=== PATIENT | female | born 1950 | race Caucasian/White ===

== ENCOUNTER 2018-06-15 11:12 | Emergency (ER) | payer MEDICARE, MEDICAID, SELFPAY ==
[2018-06-15 11:13] VITALS: BP 147/103; PULSE 100; RESP 18; TEMP 36.6; O2SAT 100; BMI 19.5
--- NOTE | 2018-06-15 11:34 | RAD_ITS ---
STUDY: X-RAY - RIGHT HAND REASON FOR EXAM: Female, 68 years old. Increasing pain. No known injury. TECHNIQUE: 3 view(s) of the hand. COMPARISON: None. FINDINGS: Normal radiocarpal articulation. Normal distal radioulnar joint. Normal visualized carpal bones. Normal carpal articulations There is degenerative arthrosis of the carpometacarpal (CMC) articulation of the thumb. Normal second through fifth carpometacarpal joints. Normal metacarpi. There is degenerative arthrosis of the metacarpophalangeal (MCP) joints. Normal interphalangeal joint of the thumb. Normal proximal and distal phalanges of the thumb. There is degenerative arthrosis of the metacarpophalangeal (MCP) joints. There is diffuse articular joint space narrowing of the proximal and distal interphalangeal joints of the second through fifth fingers, but without erosive changes or periarticular soft tissue swelling. Normal phalanges of the second through fifth fingers. Soft tissue swelling. Calcification of the triangular fibrocartilage. 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 Electronically Signed: Riley Lebron, at 12:51 EST , Service support ,
--- NOTE | 2018-06-15 12:12 | ED.VISSUMM ---
- ER Visit Summary Date of Service: 06/15/18 Chief Complaint: Right wrist pain History of Present Illness: The patient is a 68 F who states that yesterday she woke with pain in the right base of her thumb. It gradually got worse. She denies any history of gout. She does note she has rheumatoid arthritis but not take anything for it. She denies any breaks in the skin or erythema. No fevers. No rashes. She is right-handed. Physical Examination: Afebrile vital signs are stable Patient has tenderness to palpation over the right first carpometacarpal joint. She has chronic changes associated with rheumatoid arthritis of the hands. Negative Lionel test. She is neurovascular intact distal. There is no breaks in the skin's or erythema. Is no lymphangitis. Test Results: X-rays of the hand reveal significant right CMC arthritis. Emergency Department Course and Treatment: Patient was placed in a thumb spica splint. Short course of anti-inflammatories and instructions for ibuprofen. She is to follow-up with primary care. Impression: 1. Right first carpal metacarpal arthritis This note was generated with [employer] dictation software. It may contain incorrect words, spelling, and punctuation that were not noted in review of the chart prior to signing ED Disposition - Plan for ED Patient: Disposition: Home or Assisted Living Instructions: ED Arthritis Rheumatoid Prescriptions: Prednisone [Deltasone] 40 mg PO DAILY #10 tab Referrals: Guilherme Cortez MD [Primary Care Provider] - 1 Week
--- NOTE | 2018-06-15 12:41 | ED.RN ---
DISCHARGE INSTRUCTIONS GIVEN TO AND REVIEWED WITH PATIENT, PATIENT DENIES QUESTIONS OR CONCERNS AND VOICES UNDERSTANDING OF DISCHARGE INSTRUCTIONS. PT AMBULATES OUT OF ROOM WITHOUT DIFFICULTY.
== END 2018-06-15 12:41 | disposition home or self-care (01) ==
PROVIDERS: Emergency Provider Emergency Medicine; Family Provider Family Medicine; PCP Family Medicine
DX: M19.031 Primary osteoarthritis, right wrist (principal)
CPT/HCPCS: 73130; 99283

== ENCOUNTER 2018-09-16 01:22 | Emergency (ER) | payer MEDICARE, MEDICAID, SELFPAY ==
[2018-09-16 01:23] VITALS: BP 176/131; PULSE 94; RESP 22; TEMP 36.6; O2SAT 97; BMI 18.9
[2018-09-16 01:29] VITALS: BP 151/85
--- NOTE | 2018-09-16 01:33 | CT_ITS ---
HISTORY: S/P FALL GOING UP THE STAIRS, C/O LEFT SHOULDER PAIN AND NECK PAIN, HX COPD, EMPHYSEMA EXAMINATION: CT Head or Brain W/O Contrast TECHNIQUE: Multiple axial images were obtained of the brain without intravenous contrast. A radiation dose optimization technique was used for this scan. IV Contrast dosage and agent: None. COMPARISON: None FINDINGS: Age-appropriate cerebral cortical atrophy. Normal ventricles. Crocker-white matter differentiation appears normal. No intracranial mass, hemorrhage, or acute intracranial abnormality. Posterior fossa structures are unremarkable. No suspicious extra-axial fluid collection. The calvarium appears intact. As visualized, the mastoids are clear. Hypoplastic right maxillary sinus. Left parietal large scalp and subgaleal hematoma. No associated fracture. CT/Brain/Head without Contrast IMPRESSION: 1. Normal CT brain for age. 2. Left parietal large scalp and subgaleal hematoma. No calvarial fracture seen. Individualized dose optimization techniques were used for this CT. at 0234 Reported and signed by: Graeme Abdalla MD Electronically Signed: Graeme Abdalla, at 2:33 EDT Tel , Service support ,
--- NOTE | 2018-09-16 01:33 | RAD_ITS ---
HISTORY: Trauma PT FELL GOING UP STEPS PAIN LT MID CLAVICLE TO SHOULDER EXAMINATION/TECHNIQUE: XR left shoulder 4 views COMPARISON: None FINDINGS: Generalized bony demineralization consistent with the patient's age. No fracture seen. High position of the left humeral head beneath the acromion on as seen with rotator cuff arthropathy. Degenerative arthritis with narrowing of the left AC joint. RAD/Shoulder min 2 Views IMPRESSION: 1. No fracture or acute osseous abnormality. 2. Left shoulder degenerative change with rotator cuff arthropathy. at 0247 Reported and signed by: Graeme Abdalla MD Electronically Signed: Graeme Abdalla, at 2:45 EDT Tel , Service support ,
--- NOTE | 2018-09-16 01:33 | CT_ITS ---
HISTORY: S/P FALL GOING UP THE STAIRS, C/O LEFT SHOULDER PAIN AND NECK PAIN, HX COPD, EMPHYSEMA EXAMINATION: CT Spine Cervical W/O Contrast TECHNIQUE: Helically acquired images were obtained of the cervical spine. 2D reformatted images were reviewed. A radiation dose optimization technique was used for this scan. IV Contrast dosage and agent: None. COMPARISON: Cervical spine x-ray 02/09/2017 FINDINGS: No fracture or acute osseous abnormality. Developmental ossicle superior to the dens. Intact dens and craniocervical junction. Multilevel degenerative changes. C1-C2 osteoarthritis. C5-6 and C6-7 disc space narrowing accompanied by endplate spurring both anteriorly and posteriorly. Multilevel facet joint arthritis and uncovertebral spurring. CT/Spine Cervical without Contras IMPRESSION: 1. Negative for fracture or acute osseous abnormality. 2. Multilevel degenerative changes. Individualized dose optimization techniques were used for this CT. at 0240 Reported and signed by: Graeme Abdalla MD Electronically Signed: Graeme Abdalla, at 2:39 EDT Tel , Service support ,
--- NOTE | 2018-09-16 01:37 | CT_ITS ---
HISTORY: S/P FALL GOING UP THE STAIRS, C/O LEFT SHOULDER PAIN AND NECK PAIN, HX COPD, EMPHYSEMA EXAMINATION: CT Chest W/O Contrast TECHNIQUE: Helically acquired images were obtained of the chest. A radiation dose optimization technique was used for this scan. IV Contrast dosage and agent: None. COMPARISON: None FINDINGS: Right apical pleural parenchymal scarring and additional left apical minor scarring. Chronic lung disease with centrilobular emphysema. No acute infiltrate or pulmonary contusion. No pneumothorax. No pleural effusion. Bones: Displaced fracture of the sternal manubrium accompanied by soft tissue hematoma. Adjacent mildly displaced fractures of the anterior left first and second ribs. Thoracic aorta is atherosclerotic and normal in caliber. Coronary artery calcifications. No pericardial effusion. No lymphadenopathy seen. CT/Chest without Contrast IMPRESSION: 1. Displaced fracture of the sternal manubrium accompanied by soft tissue hematoma. Mildly displaced fractures of the anterior left first and second ribs. 2. No pneumothorax or pulmonary contusion. 3. Chronic lung disease with emphysema and biapical scarring, worse on the right. 4. Atherosclerotic calcifications including coronary artery calcifications. Individualized dose optimization techniques were used for this CT. at 0258 Reported and signed by: Graeme Abdalla MD Electronically Signed: Graeme Abdalla, at 2:57 EDT Tel , Service support ,
--- NOTE | 2018-09-16 01:38 | ED.VISSUMM ---
- ER Visit Summary Date of Service: 09/16/18 Chief Complaint: Fall History of Present Illness: The patient is a 68 F presenting after fall. Patient states she was carrying her cat upstairs and lost her balance. She fell forward and then fell down several steps. She did hit her head. She believes she lost consciousness. She complains of left upper rib and left shoulder pain. She is not on anticoagulants. She was able to ambulate after the fall. Denies other complaints. Physical Examination: Vitals are stable. Patient is afebrile. Alert no acute distress. HEENT exam is unremarkable. Neck is mild diffuse tenderness with no step-off Lungs are clear and equal bilaterally. Left anterior rib tenderness with no crepitus Heart is regular rate and rhythm. Abdomen is soft nontender nondistended. No guarding or rebound Extremities mild diffuse tenderness left shoulder with active full range of motion Skin is warm and dry. No focal neurologic deficit. Remainder of exam is unremarkable. Emergency Department Course and Treatment: Patient was given morphine, Zofran IV. CT head shows normal CT brain for age. Left parietal large scalp and subgaleal hematoma. No calvarial fracture seen. CT cervical spine shows negative for fracture or acute osseous abnormality. Multilevel degenerative changes. CT chest shows displaced fracture of the sternal manubrium accompanied by soft tissue hematoma. Mildly displaced fractures of the anterior left first and second ribs. No pneumothorax or pulmonary contusion. Chronic lung disease with emphysema and biapical scarring, worse on the right. Atherosclerotic calcifications including coronary artery calcifications. Left shoulder x-ray shows no fracture or acute osseous abnormality. Left shoulder degenerative change with rotator cuff arthropathy. Due to patient's sternal fracture and first and second rib fracture, she will be transferred to a trauma center. Discussed with [facility]. She will be transferred to [facility] for further evaluation. Disposition: Transfer [facility] Impression: Sternal fracture, left first and second rib fracture, status post mechanical fall This note was generated with [employer] dictation software. It may contain incorrect words, spelling, and punctuation that were not noted in review of the chart prior to signing ED Disposition - Plan for ED Patient: Referrals: Guilherme Cortez MD [Primary Care Provider] -
[2018-09-16] MEDS: Ondansetron 4 MG/2 ML Vial IV (01:47)
--- NOTE | 2018-09-16 01:47 | ED.RN ---
PT NOTES A BUMP ON HER HEAD. DR ROSS NOTIFIED. HOLD MORPHINE AT THIS TIME
[2018-09-16] MEDS: Morphine 2 MG/ML Syringe IV (03:43)
[2018-09-16 04:33] VITALS: BP 156/81; PULSE 89; RESP 19; O2SAT 97
== END 2018-09-16 04:35 | disposition short-term general hospital (02) ==
LOC: ED 01:52
PROVIDERS: Emergency Provider Emergency Medicine; Family Provider Family Medicine; PCP Family Medicine
DX: S22.21XA Fracture of manubrium, initial encounter for closed fracture (principal); S22.42XA Multiple fractures of ribs, left side, initial encounter for closed fracture; S00.03XA Contusion of scalp, initial encounter; W10.9XXA Fall (on) (from) unspecified stairs and steps, initial encounter; Y93.9 Activity, unspecified; Y92.9 Unspecified place or not applicable; J43.9 Emphysema, unspecified; M19.012 Primary osteoarthritis, left shoulder; I25.10 Atherosclerotic heart disease of native coronary artery without angina pectoris; Z72.0 Tobacco use
CPT/HCPCS: 70450; 71250; 72125; 73030; 96374; 96375; 99284; A4216; J2405

== ENCOUNTER 2021-04-22 14:13 | Emergency (ER) | payer MEDICARE, MEDICAID, SELFPAY ==
[2021-04-22 14:14] VITALS: BP 134/83; PULSE 107; RESP 20; TEMP 36.6; O2SAT 97; BMI 18.8
--- NOTE | 2021-04-22 14:20 | RAD_ITS ---
STUDY: X-RAY - LEFT KNEE REASON FOR EXAM: Female, 71 years old. Pain and swelling. No history of injury. TECHNIQUE: 4 view(s) of the knee. COMPARISON: None. FINDINGS: Normal visualized distal femur. Normal visualized proximal tibia and fibula. Normal proximal tibiofibular articulation. There is severe degenerative arthrosis of the medial femorotibial compartment with severe joint space narrowing. Normal lateral femorotibial compartment. There is moderate degenerative arthrosis of the patellofemoral articulation. Moderate sized joint effusion. Chondrocalcinosis. RAD/Knee 4 or More Views IMPRESSION: Degenerative arthrosis. Moderate size joint effusion. Electronically Signed: Riley Lebron MD at 14:36 EST , Service support ,
--- NOTE | 2021-04-22 17:34 | EX.ED.DYSGE1 ---
HPI History of Present Illness Chief Complaint: Lower Extremity Injury Informant: patient Narrative Narrative: 71-year-old female states that last night she began to have left knee swelling and pain. She states that she is having a great deal of time walking on it. She has a known Rainey's cyst but does not have an orthopedist that she follows with. She also notes pain in the left ankle and hip. She denies any fevers or chills. No known trauma. She states she does not have a history of gout. PFSH PFSH Medical History COPD (chronic obstructive pulmonary disease) Smoker Home Medications NK 04/22/21 [History Last Taken Unknown] ketorolac 10 mg PO Q8H PRN 5 Days #15 tab 04/22/21 [Rx Last Taken Unknown] Allergy/AdvReac Type Severity Reaction Status Date / Time latex Allergy Rash Verified 04/22/21 14:16 levofloxacin [From Levaquin] Allergy Rash Verified 04/22/21 14:16 hydrocodone bitartrate AdvReac MADE ME Verified 04/22/21 14:16 [From Vicodin] FEEL WEIRD Surgical History History of appendectomy History of hysterectomy Social History (Updated 04/22/21 @ 17:[address] Davy Ross DO) Smoking Status: Light Smoker (<10/day) substance use type: does not use ROS ROS ED Constitutional Constitutional ED: Denies chills, fever(s) or weight loss Eyes Eyes: Denies change in vision or diplopia ENT ENT ED: Denies ear pain, rhinorrhea or sore throat Cardiovascular Cardiovascular: Denies chest pain, orthopnea, palpitations or racing heartbeat Respiratory/Chest Respiratory/Chest: Denies cough, dyspnea or orthopnea Gastrointestinal Gastrointestinal: Denies abdominal pain, diarrhea, nausea or vomiting Genitourinary Genitourinary ED: Denies dysuria, hematuria or urinary frequency Musculoskeletal Musculoskeletal: Reports other Details: Knee pain and swelling ; Denies arthralgias or myalgias Integumentary Denies abscess or rash Neurologic Neurologic: Denies headache(s) or weakness Psychiatric Psychiatric: Denies anxiety, depression, suicidal ideation or suicidal thoughts Endocrine Endocrinology: Denies polydipsia, polyphagia or polyuria Allergic/Immunologic Allergic/Immunologic ED: Denies mouth swelling, tongue swelling or urticaria EXAM Physical Exam Const Vital Signs: 04/22/21 14:14 04/22/21 19:39 Temperature 97.9 F Temperature Source Temporal Pulse Rate 107 H Respiratory Rate 20 H Blood Pressure 134/83 H 142/68 H Blood Pressure Mean 100 92 Pulse Ox 97 Oxygen Delivery Method Room Air Positive well nourished and well developed General Appearance ED: well developed HEENT Reports normocephalic, head/scalp atraumatic, TM's clear and moist mucous membranes Negative for trauma Tympanic Membrane ED: Yes TM's clear Eyes PERRL and EOMs intact bilaterally Neck no lymphadenopathy, supple and no JVD Resp normal respiratory effort and clear to auscultation bilaterally Cardio regular rate, regular rhythm and no murmurs GI normal to inspection, nondistended, normoactive bowel sounds and non-tender Palpation: soft Back/Spine no CVA tenderness and normal ROM Extremity Extremity Narrative: Left knee: There is a palpable effusion. There is no increased warmth or redness noted. Extensor mechanism is intact. There is a palpable Rainey's cyst. Left ankle foot and hip do not show any outward signs of trauma erythema increased warmth or effusions. General Extremety ED: Negative for edema General Extremity: Negative for edema Neuro oriented x3 and CN's II-XII intact bilaterally Sensorium / Orientation: alert Motor Exam: strength 5/5 throughout Psych mental status grossly normal Mood & Affect: Negative for depressed or tearful Skin no rashes or lesions noted and no wounds MDM MDM MDM Narrative Medical decision making narrative: My interpretation of the plain film of the left knee is significant degenerative arthrosis of the medial femorotibial compartment and narrowing. There is moderate sized joint effusion. Patient provided informed written consent for arthrocentesis of the left knee. Using sterile technique the knee was prepped with Betadine and allowed to dry. Using a lateral superior approach a wheal was raised using 1% lidocaine and slowly advanced into the joint. Approximately 60 cc of yellow fluid was removed. Needle was removed and Band-Aid applied. Remainder of the Betadine was washed off. Fluid was sent for analysis. This was negative for crystals. Total white count 17,770 with a differential of neutrophils at 97. Patient will be discharged home. She did receive a dose of Toradol here. Write for her to have anti-inflammatories and recommend early orthopedic follow-up Lab Data Labs: Laboratory Results - last 24 hr 04/22/21 18:05 Fluid Crystals SEE PATH REV Fluid Crystal Source SYNOVIAL Fl Crystal Path Review Will follow Synovial Source LT KNEE Synovial Color Yellow Synovial Appearance Turbid Synovial Viscosity Sl. Viscous Synovial WBC 17.7700 H Synovial RBC [address] H Synovial Tot Cell Ct 17.7950 H Synov Polynuclear WBCs 21.307 Synovial Neutrophils 97 H Synovial Lymphocytes 1 Synovial Monocytes 2 Synovial Polynuclear % 93.3 Synovial Mononuclear % 6.[address] Comment May follow Radiography Diagnostic Testing: Clinical Impression(s) from Imaging Studies Knee X-Ray 04/22/21 14:20 IMPRESSION: Degenerative arthrosis. Moderate size joint effusion. Electronically Signed: Riley Lebron MD at 14:36 EST , Service support , Discharge Plan Triage Chief Complaint: Lower Extremity Injury ED Provider: Davy Ross Dx/Rx/DC Orders Clinical Impression: Effusion of left knee, Degenerative joint disease of left knee Instructions: ED Knee Effusion Prescriptions: New ketorolac 10 mg tablet 10 mg PO Q8H PRN (Reason: pain) 5 Days Qty: 15 RF: 0 No Action NK RF: 0 Primary Care Provider: Terry Trujillo Referrals: Terry Trujillo MD [Primary Care Provider] - Reginald Parish DO [STAFF PHYSICIAN] - As soon as possible Disposition Disposition: Home, Self Care
[2021-04-22] MEDS: Lidocaine 1% (20 ml mdv) 20 ML Vial INFILT (18:12)
[2021-04-22 18:18] LABS: Pathologist Comment May follow
[2021-04-22 19:04] LABS: Synovial Fld Mononuclear WBC % 6.7 %; Synovial Fld Polynuclear WBC % 93.3 %
[2021-04-22 19:38] LABS: AUTO B FLUID DILUENT BKGD CT WBC <0.1 RBC <0.01 (W<.1,R<.01); Color / Synovial Fluid Yellow (Pale Yellow); RBC /Synovial Fluid 17 /mm3 (0); Source / Synovial Fluid LT KNEE; Source- Body Fluid SYNOVIAL; Viscosity / Synovial Fluid Sl. Viscous (HIGH)
[2021-04-22 19:39] VITALS: BP 142/68
[2021-04-22 20:29] LABS: Lymph 1 %; Monocyte /Synovial Fluid 2 %; Neutrophil 97 % (0-25)
[2021-04-22 20:45] LABS: Body Fluid QC Type(s) BF1Q,BF2Q
[2021-04-22 20:46] LABS: Appearance /Synovial Fluid Turbid (CLEAR)
[2021-04-22] MEDS: Ketorolac 60 MG/2 ML Vial IM (20:50)
[2021-04-22 21:15] VITALS: BP 151/87; PULSE 86; RESP 18
[2021-04-23 14:20] LABS: Pathologist Review Reviewed
== END 2021-04-22 21:27 | disposition home or self-care (01) ==
PROVIDERS: Emergency Provider Emergency Medicine; PCP Family Medicine; Visit Provider Emergency Medicine
DX: M17.12 Unilateral primary osteoarthritis, left knee (principal); J44.9 Chronic obstructive pulmonary disease, unspecified; M25.572 Pain in left ankle and joints of left foot; F17.200 Nicotine dependence, unspecified, uncomplicated
CPT/HCPCS: 20610; 73564; 87070; 87075; 87205; 89050; 89051; 89060; 96372; 99282

== ENCOUNTER 2023-09-26 11:56 | Emergency (ER) | payer MEDICARE, MEDICAID, SELFPAY ==
[2023-09-26 11:56] VITALS: BP 171/81; PULSE 95; RESP 16; TEMP 36.8; O2SAT 97; BMI 19.2
--- NOTE | 2023-09-26 12:22 | ED.VIS.LOWEX ---
HPI History of Present Illness HPI Narrative: Patient presents with left knee pain that has been getting worse over the past few days. Patient denies any trauma or injury. Patient states he has a history of rheumatoid arthritis and this flared up in her hand several days ago. Patient states that also flared up into her knee a couple days ago. Patient states her pain is worse with ambulation. Patient states it is better with rest. Patient denies any paresthesias or weakness. Patient denies any fevers or chills. Patient denies any trauma or injury. Chief Complaint: Lower Extremity Injury Informant: patient Onset/Context/Timing Onset: Days Context: Gradual Onset Timing: Continuous Quality of Pain: Aching Location: Left knee Worsened by: Ambulation Relieved by: Rest Associated Symptoms Associated Symptoms: Negative for Parasthesia, Weakness or Loss of Funtion PFSH PFSH Medical History COPD (chronic obstructive pulmonary disease) Smoker Home Medications ?Medication ?Instructions ?Recorded ?Last Taken ?Type ketorolac 10 mg tablet 10 mg PO Q8H PRN pain 5 days #15 04/22/21 Unknown Rx tabs tramadol 50 mg tablet 50 mg PO Q4H PRN PRN Pain 3 days 09/26/23 Unknown Rx #20 tabs Allergy/AdvReac Type Severity Reaction Status Date / Time latex Allergy Rash Verified 09/26/23 11:57 levofloxacin (From Levaquin) Allergy Rash Verified 09/26/23 11:57 hydrocodone bitartrate (From AdvReac MADE ME Verified 09/26/23 11:57 Vicodin) FEEL WEIRD Surgical History History of appendectomy History of hysterectomy Social History Smoking Status: Light Smoker (<10/day) substance use type: does not use ROS ROS ED Constitutional Constitutional ED: Denies chills or fever(s) Eyes Eyes: Denies blurry vision or change in vision ENT ENT ED: Denies rhinorrhea or sore throat Cardiovascular Cardiovascular: Denies chest pain or palpitations Respiratory/Chest Respiratory/Chest: Denies cough or dyspnea Gastrointestinal Gastrointestinal: Denies nausea or vomiting Genitourinary Genitourinary ED: Denies dysuria or hematuria Musculoskeletal Musculoskeletal: Denies back pain or neck pain Integumentary Denies abscess or rash Neurologic Neurologic: Denies headache(s) or weakness Allergic/Immunologic Allergic/Immunologic ED: Denies mouth swelling or urticaria EXAM Physical Exam Const Vital Signs: 09/26/23 11:56 Temperature 98.2 F Temperature Source Temporal Pulse Rate 95 Respiratory Rate 16 Blood Pressure 171/81 H Blood Pressure Mean 111 Pulse Ox 97 Oxygen Delivery Method Room Air Positive well nourished and well developed General Appearance ED: well developed and NAD HEENT Reports moist mucous membranes Neck full ROM and supple Extremity Extremity Narrative: There is tenderness and a mild effusion over the left knee. There is no deformity noted. There is no erythema or warmth noted. There is a palpable Rainey's cyst noted. There is no laxity appreciated. There is no pain with short arc range of motion. Strength is 5/5 bilaterally in the lower extremities. There are no sensory deficits noted. Neuro oriented x3, CN's II-XII intact bilaterally, moves all extremities and no sensory deficits noted Sensorium / Orientation: alert Motor Exam: strength 5/5 throughout Psych mental status grossly normal MDM MDM MDM Narrative Medical decision making narrative: Patient was advised that this is most likely a flareup of her rheumatoid arthritis. I do not feel x-rays are necessary at this time. These were offered to the patient however she did not want them today either. Patient was given a dose of tramadol here. Patient was given a prescription for tramadol. Patient was instructed to continue with her meloxicam as previously prescribed. Patient was instructed to use ice to the area. Patient was instructed to follow-up with her primary care physician in 5 to 7 days. Patient understood and was agreeable with the plan. All questions were answered. Discharge Plan Triage Chief Complaint: Lower Extremity Injury ED Provider: Shaheed Sullivan Dx/Rx/DC Orders Clinical Impression: Acute pain of left knee, Rheumatoid arthritis flare, Tobacco use disorder Instructions: ED Arthralgia, ED Rheumatoid Arthritis Prescriptions: New tramadol 50 mg tablet 50 mg PO Q4H PRN PRN (Reason: Pain) 3 Days Qty: 20 0RF No Action ketorolac 10 mg tablet 10 mg PO Q8H PRN (Reason: pain) 5 Days Qty: 15 0RF Primary Care Provider: Terry Trujillo Referrals: Terry Trujillo MD [Primary Care Provider] - 3-5 Days Print Language: Amharic Disposition Disposition: Home, Self Care
[2023-09-26] MEDS: traMADol 50 MG Tablet PO (12:53)
[2023-09-26 12:57] VITALS: BP 166/72; PULSE 92; RESP 16; TEMP 36.7; O2SAT 97
== END 2023-09-26 12:58 | disposition home or self-care (01) ==
LOC: ED 12:42
PROVIDERS: Emergency Provider Emergency Medicine; PCP Family Medicine; Visit Provider Emergency Medicine
DX: M06.869 Other specified rheumatoid arthritis, unspecified knee (principal); M06.849 Other specified rheumatoid arthritis, unspecified hand; J44.9 Chronic obstructive pulmonary disease, unspecified; M25.562 Pain in left knee; F17.200 Nicotine dependence, unspecified, uncomplicated; Z90.49 Acquired absence of other specified parts of digestive tract; Z90.710 Acquired absence of both cervix and uterus
CPT/HCPCS: 99282

== ENCOUNTER 2023-10-22 11:07 | Emergency (ER) | payer MEDICARE, MEDICAID, SELFPAY ==
[2023-10-22 11:08] VITALS: BP 163/92; PULSE 114; RESP 16; TEMP 36.3; O2SAT 96; BMI 17.6
--- NOTE | 2023-10-22 11:19 | RAD_ITS ---
STUDY: X-RAY - LEFT WRIST REASON FOR EXAM: Female, 73 years old. Trauma. Pain. TECHNIQUE: 3 view(s) of the wrist were obtained. COMPARISON: None. FINDINGS: Marked osteopenia. Mild arthrosis of the radiocarpal articulation. Mild arthrosis of the distal radioulnar articulation. Moderate arthrosis of the radial carpal row of the wrist. Minimal cystic changes in multiple carpal bones. Moderate to severe arthrosis of the first CMC joint. Moderate arthrosis of the visualized MCP and IP joints. Chondrocalcinosis. RAD/Wrist min 3 Views IMPRESSION: Marked osteopenia with osteoarthritic changes and chondrocalcinosis. No acute abnormality or erosive changes. Normal x-ray examination of the wrist. Electronically Signed: Alex Patel MD at 11:56 EDT ,
--- NOTE | 2023-10-22 11:19 | CT_ITS ---
STUDY: CT CERVICAL SPINE WITHOUT CONTRAST REASON FOR EXAM: Female, 73 years old. Neck pain and stiffness RADIATION DOSAGE (If Supplied By Facility): CTDIvol = ( 12.02 ) mGy, DLP = ( 240.92 ) mGycm TECHNIQUE: High resolution transaxial imaging was performed without contrast material. Sagittal and coronal images were reconstructed. Individualized dose optimization techniques were used for this CT. COMPARISON: None FINDINGS: Normal craniovertebral junction. There are degenerative changes of the anterior atlantoaxial articulation. Normal odontoid process. There is straightening of the normal cervical lordosis, likely positional or due to pain. Bones are demineralized There is anatomic alignment from C1 to C3. There is 2 to 3 mm of posterior subluxation of C4 on C3 and another 2 to 3 mm of posterior subluxation of C5 on C4. There is anatomic alignment between C5 and T1. C2-3: Normal endplates. Disc space narrowing.. Normal central canal and intervertebral neuroforamina. C3-4: Normal endplates. Disc space narrowing. No central canal narrowing, there is bilateral foraminal narrowing due to facet joint hypertrophy. C4-5: Normal endplates. Disc space narrowing. No central canal narrowing, there is bilateral foraminal narrowing due to facet joint hypertrophy. C5-6: Sclerotic irregular endplates with posterior uncovertebral spurs. No central canal narrowing, there is bilateral foraminal narrowing due to facet joint hypertrophy and spur formation C6-7: Sclerotic irregular endplates with posterior uncovertebral spurs. No central canal narrowing, there is bilateral foraminal narrowing due to facet joint hypertrophy and spur formation C7-T1: Normal endplates. Disc space narrowing.. Normal central canal and intervertebral neuroforamina. Soft tissues show dense calcifications in the carotid arteries, no airway narrowing or deviation, lung apices show underlying emphysema. CT/Spine Cervical without Contras IMPRESSION: Multilevel degenerative changes, as described above. No demonstrated fracture or suspicious osseous lesion Electronically Signed: Marcos Menon MD at 12:18 EDT ,
--- NOTE | 2023-10-22 11:19 | CT_ITS ---
STUDY: CT THORACIC SPINE WITHOUT CONTRAST REASON FOR EXAM: Female, 73 years old. Mid back pain RADIATION DOSAGE (If Supplied By Facility): CTDIvol = ( 18.42 ) mGy, DLP = ( 691.71 ) mGycm TECHNIQUE: The patient was scanned in a multi detector CT scanner. High resolution imaging was performed. Images were obtained from C7 to T12. Sagittal and coronal images were reconstructed. Individualized dose optimization techniques were used for this CT. COMPARISON: None. FINDINGS: Normal visualized cervical spine. Normal kyphosis of the thoracic spine. There is a dextroscoliosis of the thoracic spine. There is multilevel endplate spondylosis of the thoracic spine. There is multilevel degenerative disc disease with loss of the disc space heights. The soft tissue structures are unremarkable. CT/Spine Thoracic without Contras IMPRESSION: Multilevel degenerative changes with a dextroscoliosis. No demonstrated fracture Electronically Signed: Marcos Menon MD at 12:20 EDT ,
--- NOTE | 2023-10-22 11:21 | ED.VIS.FALL ---
HPI HPI - Fall History of Present Illness Chief Complaint: Fall Narrative Narrative: 73-year-old female past medical history of chronic knee pain presents with her daughter status post fall on Thursday, 4 days ago. She states that she slid down an embankment, it was not that steep incline, she mainly fell on her tailbone, and slid. She page her upper back and neck. Since then, she has been having problems with turning her head because she complains of bilateral neck pain, and also pain in the muscles around her upper back and across her shoulder blades. She also complains of right wrist pain. She has been taking tramadol with mild relief. She states it is difficult for her to turn her head and she cannot sleep at night. She denies hitting her head or loss of consciousness at the time of injury 4 days ago. PFSH PFSH Medical History COPD (chronic obstructive pulmonary disease) Smoker Home Medications ?Medication ?Instructions ?Recorded ?Last Taken ?Type ketorolac 10 mg tablet 10 mg PO Q8H PRN pain 5 days #15 04/22/21 Unknown Rx tabs tramadol 50 mg tablet 50 mg PO Q4H PRN PRN Pain 3 days 09/26/23 Unknown Rx #20 tabs oxycodone-acetaminophen 5 mg-325 1 tab PO Q6H PRN pain 3 days #12 10/22/23 Unknown Rx mg tablet (Percocet) tabs Allergy/AdvReac Type Severity Reaction Status Date / Time latex Allergy Rash Verified 10/22/23 11:10 levofloxacin (From Levaquin) Allergy Rash Verified 10/22/23 11:10 hydrocodone bitartrate (From AdvReac MADE ME Verified 10/22/23 11:10 Vicodin) FEEL WEIRD Surgical History History of appendectomy History of hysterectomy Social History Smoking Status: Light Smoker (<10/day) substance use type: does not use ROS ROS ED ROS Narrative Focused review of systems is positive for bilateral paraspinal neck pain, worse with movement of her head, along with musculoskeletal pain across her back that is also worse with movement of her arms. It radiates to her shoulders. She also complains of right wrist pain is minor, worse with movement. No sacral or coccyx pain, no problems with bowel movements. EXAM Physical Exam Narrative Exam Narrative: Afebrile. Vital signs noted. HEENT: Normocephalic. Atraumatic. PERRL, EOMI. Neck soft and supple. No point tenderness or step off. Cardiovascular: Regular rate and rhythm. No murmurs, rubs, or gallops appreciated. Respiratory: No tachypnea. Lungs clear to auscultation bilaterally. Gastrointestinal: Abdomen soft, nontender, with normoactive bowel sounds. No rebound or guarding. Neurological: Awake. Alert. Nonfocal, nonlateralizing. Skin: No rash. Normal color. No pallor. Musculoskeletal: No pedal edema. Full range of motion extremities. Minimal diffuse tenderness to palpation right wrist, palpable radial pulse. No obvious deformity. Positive arthritic changes of bilateral hands. Able to move and oppose thumb at her baseline. Mild tenderness to palpation bilateral paraspinal muscles of cervical and thoracic spine. Positive tenderness to palpation bilateral rhomboid areas. Const Vital Signs: 10/22/23 11:07 10/22/23 11:08 10/22/23 11:08 Temperature 97.4 F L Temperature Source Temporal Pulse Rate 114 H 114 H Respiratory Rate 16 16 Respiratory Effort Normal Respiratory Depth Normal Respiratory Pattern Normal Blood Pressure 163/92 H 163/92 H Blood Pressure Mean 115 115 Pulse Ox 96 96 Oxygen Delivery Method Room Air Room Air Room Air MDM MDM MDM Narrative Medical decision making narrative: Based on her clinical examination, I have low suspicion for any fracture of her scapula leg, and even of her wrist. I think she probably has paraspinal muscle spasms. They requested a shot for analgesia. She will be given a one-time dose of Norflex. Do feel that she may be having more radicular symptoms. CT of the cervical and thoracic spine were obtained to help rule out fracture. Additionally, x-rays were obtained of the right wrist and 3 views and interpreted by myself independently to help rule out fracture versus sprain. They were also obtained of the left wrist and interpreted by myself independently. I reviewed the radiology reports of the CT of the cervical and thoracic spine and there is no evidence of acute fracture. On my independent interpretation of her bilateral wrist x-rays, no acute fracture. I reviewed the radiology report which confirms my independent interpretation of the bilateral wrist x-rays. They did comment that with high clinical suspicion CT should be obtained. Through shared decision making, as I have low suspicion for fracture as her injury was 4 days ago, it was not felt that CT of the right wrist needed to be obtained. I discussed with them the use of stronger pain medications and narcotics. She will be written a prescription for Percocet for the next 3 days which she states she has tolerated previously. She was warned of the risk of nausea, vomiting, drowsiness, constipation, and addiction with use of narcotic pain medication and acknowledges an understanding. At this point in time, I feel she can be discharged to follow-up with her primary care provider. Return instructions to the emergency department were reviewed. Disposition is discharged home in stable condition. History & Record Review Discussion w/independent historian: Patient and Family Radiography Diagnostic Testing: Clinical Impression(s) from Imaging Studies Cervical Spine CT 10/22/23 11:19 IMPRESSION: Multilevel degenerative changes, as described above. No demonstrated fracture or suspicious osseous lesion Electronically Signed: Marcos Menon MD at 12:18 EDT , Thoracic Spine CT 10/22/23 11:19 IMPRESSION: Multilevel degenerative changes with a dextroscoliosis. No demonstrated fracture Electronically Signed: Marcos Menon MD at 12:20 EDT , Wrist X-Ray 10/22/23 11:19 IMPRESSION: Marked osteopenia with osteoarthritic changes and chondrocalcinosis. No acute abnormality or erosive changes. Normal x-ray examination of the wrist. Electronically Signed: Alex Patel MD at 11:56 EDT , Wrist X-Ray 10/22/23 11:49 IMPRESSION: Diffuse osteopenia with degenerative arthrosis and chondrocalcinosis. No demonstrated fracture. However, wrist fractures in patients of this age can be subtle, if there is strong clinical suspicion of a fracture, recommend further evaluation with CT Electronically Signed: Marcos Menon MD at 12:26 EDT , Discharge Plan Triage Chief Complaint: Fall ED Provider: Jack Hutchins Dx/Rx/DC Orders Clinical Impression: Fall, Bilateral wrist pain, Cervical strain, acute, Acute thoracic back pain Instructions: Taking Opioid Medicine, ED Arthralgia, ED Back and Neck Pain, General, ED Neck Sprain or Strain Prescriptions: New oxycodone-acetaminophen [Percocet] 5-325 mg tablet 1 tab PO Q6H PRN (Reason: pain) 3 Days Qty: 12 0RF No Action ketorolac 10 mg tablet 10 mg PO Q8H PRN (Reason: pain) 5 Days Qty: 15 0RF tramadol 50 mg tablet 50 mg PO Q4H PRN PRN (Reason: Pain) 3 Days Qty: 20 0RF Primary Care Provider: Terry Trujillo Referrals: Terry Trujillo MD [Primary Care Provider] - 1 Day Activity Restrictions/Additional Instructions: Call your primary care provider tomorrow for an appointment to be seen within the next few days. Be aware of nausea, vomiting, constipation, drowsiness, and addiction with the use of narcotic pain medication. Print Language: Mongolian Disposition Disposition: Home, Self Care
[2023-10-22] MEDS: Orphenadrine 60 MG/2 ML Ampul IM (11:29)
--- NOTE | 2023-10-22 11:49 | RAD_ITS ---
STUDY: X-RAY - RIGHT WRIST REASON FOR EXAM: Female, 73 years old. TRAUMA, PAIN TECHNIQUE: 3 view(s) of the wrist were obtained. COMPARISON: None. FINDINGS: Bones are diffusely demineralized. No demonstrated fracture or suspicious osseous lesion. Arthrosis noted at all visualized joint spaces, most notably between the scaphoid and the trapezium and between the trapezium and base of the thumb. Additionally, there is subluxation of the first CMC joint. There is subtle nonspecific soft tissue swelling, and evidence of chondrocalcinosis in the TFCC. RAD/Wrist min 3 Views IMPRESSION: Diffuse osteopenia with degenerative arthrosis and chondrocalcinosis. No demonstrated fracture. However, wrist fractures in patients of this age can be subtle, if there is strong clinical suspicion of a fracture, recommend further evaluation with CT Electronically Signed: Marcos Menon MD at 12:26 EDT ,
[2023-10-22 13:14] VITALS: BP 136/73; PULSE 82; RESP 14; TEMP 36.3; O2SAT 96
== END 2023-10-22 13:16 | disposition home or self-care (01) ==
PROVIDERS: Emergency Provider Emergency Medicine; PCP Family Medicine; Visit Provider Emergency Medicine
DX: S16.1XXA Strain of muscle, fascia and tendon at neck level, initial encounter (principal); J44.9 Chronic obstructive pulmonary disease, unspecified; M54.6 Pain in thoracic spine; F17.200 Nicotine dependence, unspecified, uncomplicated; M25.531 Pain in right wrist; M25.532 Pain in left wrist; W17.81XA Fall down embankment (hill), initial encounter; Z90.49 Acquired absence of other specified parts of digestive tract; Z90.710 Acquired absence of both cervix and uterus
CPT/HCPCS: 72125; 72128; 73110; 96372; 99282

== ENCOUNTER → 2023-11-30 | Outpatient (CLI) | payer MEDICARE, MEDICAID, SELFPAY ==
--- NOTE | 2023-11-30 16:13 | RAD_ITS ---
INDICATION: PAIN EXAMINATION/TECHNIQUE: X-RAY - LEFT XR Shoulder Min 2 Views 4 VIEWS COMPARISON: No relevant prior comparison study available FINDINGS: SOFT TISSUES: No soft tissue swelling or gas. No radiopaque foreign body. BONES/JOINTS: No acute fracture or subluxation.. The glenohumeral joint is aligned with advanced degenerative change. There is joint space narrowing with osteophytes. Superior positioning of the humeral head with narrowing of the subacromial space, consistent with chronic rotator cuff disease. Mild hypertrophic degenerative change of the acromioclavicular joint. RAD/Shoulder min 2 Views IMPRESSION: No fracture or malalignment. Evidence of chronic rotator cuff disease. Degenerative changes. Electronically Signed: Sg Mane MD at 22:21 EDT ,
--- NOTE | 2023-11-30 16:13 | RAD_ITS ---
INDICATION: PAIN EXAMINATION/TECHNIQUE: X-RAY - RIGHT XR Shoulder Min 2 Views 4 VIEWS COMPARISON: No relevant prior comparison study available FINDINGS: SOFT TISSUES: No soft tissue swelling or gas. No radiopaque foreign body. BONES/JOINTS: No acute fracture or subluxation.. Narrowing of the glenohumeral joint space with osteophytes. Superior positioning of the humeral head with narrowing of the subacromial space. Mild hypertrophic degenerative change of the acromioclavicular joint. The visualized ribs are intact. RAD/Shoulder min 2 Views IMPRESSION: No fracture or malalignment. Advanced degenerative changes. Evidence of chronic rotator cuff disease. Electronically Signed: Sg Mane MD at 22:22 EDT ,
== END | disposition home or self-care (01) ==
LOC: RAD 16:12
PROVIDERS: PCP Family Medicine; Referring Provider Anesthesiology Pain Medicine; Visit Provider Anesthesiology Pain Medicine
DX: M19.011 Primary osteoarthritis, right shoulder (principal); M19.012 Primary osteoarthritis, left shoulder
CPT/HCPCS: 73030

== ENCOUNTER 2024-06-02 13:49 | Emergency (ER) | payer MEDICARE, MEDICAID, SELFPAY ==
[2024-06-02 13:50] VITALS: BP 138/79; PULSE 90; RESP 18; TEMP 36.2; O2SAT 98; BMI 18.8
--- NOTE | 2024-06-02 14:20 | EDS_ITS ---
HPI HPI - URI History of Present Illness Chief Complaint: Ear Problem Detail of Chief Complaint: Muffled hearing on the left Informant: patient Onset/Context/Timing Onset: Weeks (Symptoms started 2 weeks ago.) Context: Sudden Onset Timing: Continuous Quality: Decreased hearing, not pain Location: Left Current Severity: Mild Maximum Severity: Moderate Worsened by: Not Worsened By Swallowing, Eating Solids or Drinking Liquids Relieved by: Not Relieved By Tylenol or NSAIDs Associated Symptoms Associated Symptoms: Positive for Nasal Congestion, Sinus Pressure and Nonproductive cough; Negative for Headache, Myalgias, Nausea, Vomiting, Diarrhea, Shortness of Breath, Chest Pain, Hemoptysis or Productive Cough Narrative Narrative: Patient is a 74-year-old woman. She presents because of muffled hearing on the left. She was seen in urgent care and treated with antibiotics because the eardrum looked red . She does endorse slight hoarse voice congestion. She also complains of some discomfort left side of her face. She denies difficulty breathing or swallowing. She denies productive cough. She has no GI symptoms. She denies visual or ocular symptoms. Prior similar symptoms: Yes Recent Illness/Hospitalization: Yes ROS ROS ED Constitutional Constitutional ED: Denies chills, fever(s), subjective or sweats Eyes Eyes: Denies blurry vision or change in vision ENT ENT ED: Reports ear pain left (Decreased hearing not pain) and rhinorrhea; Denies sore throat Cardiovascular Cardiovascular: Denies chest pain, orthopnea, palpitations or paroxysmal nocturnal dyspnea Respiratory/Chest Respiratory/Chest: Reports cough, dyspnea on exertion and other Details: History of COPD. Continues to smoke. ; Denies dyspnea, orthopnea or paroxysmal nocturnal dyspnea Gastrointestinal Gastrointestinal: Reports nausea and vomiting Integumentary Reports rash Neurologic Neurologic: Reports headache(s) Hematologic/Lymphatic Hematologic/Lymphatic: Denies easy bleeding or easy bruising PFSH PFSH Medical History COPD (chronic obstructive pulmonary disease) Smoker Home Medications ?Medication ?Instructions ?Recorded ?Last Taken ?Type ketorolac 10 mg tablet 10 mg PO Q8H PRN pain 5 days #15 04/22/21 Unknown Rx tabs tramadol 50 mg tablet 50 mg PO Q4H PRN PRN Pain 3 days 09/26/23 Unknown Rx #20 tabs oxycodone-acetaminophen 5 mg-325 1 tab PO Q6H PRN pain 3 days #12 10/22/23 Unknown Rx mg tablet (Percocet) tabs Allergy/AdvReac Type Severity Reaction Status Date / Time latex Allergy Rash Verified 06/02/24 13:50 levofloxacin (From Levaquin) Allergy Rash Verified 06/02/24 13:50 hydrocodone bitartrate (From AdvReac MADE ME Verified 06/02/24 13:50 Vicodin) FEEL WEIRD Surgical History History of appendectomy History of hysterectomy Social History Smoking Status: Light Smoker (<10/day) substance use type: does not use EXAM Physical Exam Const Vital Signs: 06/02/24 13:50 Temperature 97.2 F L Temperature Source Temporal Pulse Rate 90 Respiratory Rate 18 Blood Pressure 138/79 H Blood Pressure Mean 98 Pulse Ox 98 Oxygen Delivery Method Room Air Positive well nourished and well developed General Appearance ED: well developed and NAD; Negative for pallor HEENT Reports moist mucous membranes HEENT Narrative: Posterior pharynx is normal. Right TM is normal. Left TM has fluid and dull. There is no erythema. There is no cerumen impaction. normocephalic and atraumatic Face and Sinus: Negative for sinus tenderness Throat: posterior oropharynx normal Eyes PERRL and EOMs intact bilaterally Neck no lymphadenopathy, supple, no meningeal signs and no JVD Extremity normal to inspection and full ROM Neuro oriented x3 and CN's II-XII intact bilaterally Skin General Skin Exam: Negative for jaundice or pallor Lesions: no lesions Rashes: no rashes MDM MDM MDM Narrative Medical decision making narrative: Patient has muffled hearing because of serous otitis. Differential included neuronal problem, cerumen impaction, otitis media suppurativa, serous otitis. Discharge Plan Triage Chief Complaint: Ear Problem ED Provider: Pablo Cai Dx/Rx/DC Orders Clinical Impression: Acute serous otitis media, left ear, Decreased hearing of left ear Instructions: ED Earache Without Infection (Adult) Prescriptions: No Action ketorolac 10 mg tablet 10 mg PO Q8H PRN (Reason: pain) 5 Days Qty: 15 0RF oxycodone-acetaminophen [Percocet] 5-325 mg tablet 1 tab PO Q6H PRN (Reason: pain) 3 Days Qty: 12 0RF tramadol 50 mg tablet 50 mg PO Q4H PRN PRN (Reason: Pain) 3 Days Qty: 20 0RF Primary Care Provider: Terry Trujillo Referrals: Terry Trujillo MD [Primary Care Provider] - 10-14 Days if not better Print Language: Croatian Disposition Disposition: Home, Self Care
== END 2024-06-02 14:28 | disposition home or self-care (01) ==
LOC: ED 14:25
PROVIDERS: Emergency Provider Emergency Medicine; PCP Family Medicine; Referring Provider Emergency Medicine; Visit Provider Emergency Medicine
DX: H65.02 Acute serous otitis media, left ear (principal); J44.9 Chronic obstructive pulmonary disease, unspecified; H91.92 Unspecified hearing loss, left ear; R09.81 Nasal congestion; R05.9 Cough, unspecified; F17.200 Nicotine dependence, unspecified, uncomplicated
CPT/HCPCS: 99282